=== PATIENT | female | born 1995 | race Caucasian/White ===

== ENCOUNTER 2024-04-23 18:31 | Emergency (ER) | payer OTHER, SELFPAY ==
[2024-04-23 19:02] VITALS: BP 138/94; PULSE 117; RESP 16; TEMP 37.1; O2SAT 100
[2024-04-23 19:41] LABS: EDINFLUASCREEN Negative (Negative); EDINFLUBSCREEN Negative (Negative); EDSTREPNEGPOS1 Positive (Negative)
[2024-04-23 19:42] LABS: EDCOVIDSCREEN Negative (Negative)
--- NOTE | 2024-04-23 20:16 | ED.URI ---
HPI - URI/Sore Throat General Chief Complaint: Upper Respiratory Infection Stated Complaint: Sore Throat Time Seen by Provider: 04/23/24 20:05 Source: patient, RN notes reviewed and old records reviewed Mode of arrival: ambulatory Limitations: no limitations History of Present Illness HPI Narrative: 29 year old female who presents to [facility] care with complaints of sore throat this morning with painful swallowing. Patient reports that she had red swollen tonsils, some body aches, feels weak and has chills with no known fevers. Patient reports past history of strep throat,has not taken any OTC medications. MD elicited complaint: sore throat Onset (ago): day(s) (this morning) Severity: moderate Able to tolerate fluids by mouth: Yes Treatments prior to arrival: none Related Data Home Medications Medication Instructions Recorded Confirmed atogepant 30 mg tablet (Qulipta) 30 mg PO DAILY 04/23/24 04/23/24 dextroamphetamine-amphetamine ER 10 mg PO DAILY 04/23/24 04/23/24 10 mg 24hr capsule,extend release (Adderall XR) sumatriptan succinate 100 mg 100 mg PO ONCE 04/23/24 04/23/24 tablet (Imitrex) testosterone enanthate 50 mg/0.5 50 mg subcut WEEKLY 04/23/24 04/23/24 mL subcutaneous auto-injector (Xyosted) Allergies Allergy/AdvReac Type Severity Reaction Status Date / Time No Known Allergies Allergy Verified 04/23/24 19:05 Review of Systems Review of Systems: CONSTITUTIONAL: Reports malaise, chills, sweats, no known fever. EYES: Denies visual changes, redness, or discharge. ENT: Reports rhinorrhea, congestion,no sinus pain, no otalgia and positive for sore throat. CARDIOVASCULAR: Denies chest pain, palpitations, or edema. RESPIRATORY: Reports no cough.? Denies dyspnea. GASTROINTESTINAL: Denies abdominal pain, nausea, vomiting, diarrhea SKIN: Denies rash or itching. MUSCULOSKELETAL: Denies myalgia. NEUROLOGIC: Denies headache. All systems reviewed & are unremarkable except as noted in HPI and below PMFSH Past Medical History Medical History (Updated 04/24/24 @ 11:54 by Faiza Tan NP) ADHD (attention deficit hyperactivity disorder) History of streptococcal sore throat Migraine Social History Social History (Updated 04/24/24 @ 11:57 by Faiza Tan NP) Smoking status: Never smoker Alcohol intake: current Alcohol use details: social Substance use type: does not use Living arrangements: with family Additional gender identity comments: is on testosterone therapy Comments At time of signature, agree with nursing past medical, surgical, social and family history. There is no relevant family history pertinent to the presenting complaint Exam Narrative: GENERAL: Well-appearing, well-nourished, and in no acute distress. HEAD: Normocephalic EYES: PERRLA, conjunctivae clear ENT: Nares clear, turbinates edematous and erythematous, clear discharge. Mucous membranes moist. TM pearly randolph with dull light reflex bilaterally; no tragal tenderness. Oropharynx erythematous without lesions. Tonsils red enlarged and without exudate, no drooling, no hoarseness, no trismus, uvula midline.painful swallowing NECK: Supple. lymphadenopathy CHEST: Clear to auscultation, breath sounds equal. No wheezing, rhonchi, rales, or stridor. No respiratory distress, speaks in full sentences. no cough noted,SAO2 100% on room air HEART: Regular rate and rhythm. No murmur heard. SKIN: Warm, dry, no rash. NEURO: Alert and oriented x3. PSYCH: Normal mood and affect Course Course Emergency Course: Patient is aware of diagnosis, understands and agrees to treatment plan.? Anticipatory guidance given.? Patient agrees to follow-up as directed and is aware of reasons to seek care at the emergency department. Portions of this record may have been created with voice recognition software Level of Care: Express Care Visit Vital Signs Vital signs: Vital Signs Temperatu
== END 2024-04-23 20:28 | disposition home or self-care (01) ==
PROVIDERS: Emergency Provider Registered Nurse
DX: J02.0 Streptococcal pharyngitis (principal); Z20.822 Contact with and (suspected) exposure to COVID-19; F90.9 Attention-deficit hyperactivity disorder, unspecified type
CPT/HCPCS: 87426; 87804; 87880; 99203; G0463

== ENCOUNTER 2024-04-26 10:27 | Emergency (ER) | payer OTHER, SELFPAY ==
[2024-04-26 10:35] VITALS: BP 136/80; PULSE 93; RESP 16; TEMP 36.5; O2SAT 100
[2024-04-26 12:32] VITALS: BP 143/98; PULSE 85; RESP 14; TEMP 36.7; O2SAT 98; O2SAT 99
[2024-04-26] MEDS: SODIUM CHLORIDE 0.9% IV 1,000 ML 999 ML IV CONT (13:13)
[2024-04-26] MEDS: LIDOCAINE HCL 2% VISC SOLN 15 ML UDC PO (13:13)
[2024-04-26 13:19] LABS: Basophils Percent Auto 0.3 % (0.2-1.2); Eosinophils Absolute Auto 0.1 K/mm3 (0-0.3); Eosinophils Percent Auto 0.8 % (0-4.4); Hematocrit 44.7 % (37.0-47.0); Hemoglobin 15.4 g/dL (12.0-15.0); Immature Granulocyte Absolute 0.03 K/mm3 (0.00-0.031); Immature Granulocyte Percent A 0.3 % (0-0.5); Lymphocytes Absolute Auto 1.11 K/mm3 (0.9-3.2); Lymphocytes Percent Auto 11.1 % (18.3-44.2); Mean Corpuscular HGB Conc 34.5 g/dl (32-36); Mean Corpuscular Hemoglobin 30.7 pg (26-34); Mean Platelet Volume 11.6 fl (7.4-10.4); Monocytes Absolute Auto 0.5 K/mm3 (0.1-0.6); Monocytes Percent Auto 4.6 % (2.6-8.5); Neutrophils Absolute Auto 8.3 K/mm3 (1.3-6.7); Neutrophils Percent Auto 82.9 % (45.5-73.1); Platelet Count Result 153 k/mm3 (150-375); Red Blood Count 5.02 M/mm3 (4.2-5.4); Red Cell Distribution Width 14.1 % (11.5-14.5)
--- NOTE | 2024-04-26 13:23 | ED.GENADULT ---
HPI - General Adult General Chief complaint: Upper Respiratory Infection Stated complaint: SORE THROAT, FEVER; + FOR STREP ON TUESDAY Time Seen by Provider: 04/26/24 12:33 History of Present Illness HPI narrative: Patient is a 29-year-old female presents transitioning male who presents ER with sore throat. Ongoing over the last 4 days. Seen in urgent care on 04/23/2024 and diagnosed with strep throat. Has been on Augmentin without improvement. Nose some scleral icterus today. Concerned may be having some liver issues. Also has difficulty eating and swallowing due to pain and redness of the throat. Discomfort start on right-side is moved over to left side as well. Related Data Home Medications Medication Instructions Recorded Confirmed atogepant 30 mg tablet (Qulipta) 30 mg PO DAILY 04/23/24 04/23/24 dextroamphetamine-amphetamine ER 10 mg PO DAILY 04/23/24 04/23/24 10 mg 24hr capsule,extend release (Adderall XR) sumatriptan succinate 100 mg 100 mg PO ONCE 04/23/24 04/23/24 tablet (Imitrex) testosterone enanthate 50 mg/0.5 50 mg subcut WEEKLY 04/23/24 04/23/24 mL subcutaneous auto-injector (Xyosted) Allergies Allergy/AdvReac Type Severity Reaction Status Date / Time No Known Allergies Allergy Verified 04/23/24 19:05 Review of Systems Review of Systems: All systems reviewed & are unremarkable except as noted in HPI and below Constitutional: Constitutional: Denies chills, Reports fatigue and Reports fever(s) ENT: Denies nasal congestion and Reports sore throat Cardiovascular: Cardiovascular: Reports no additional cardiovascular complaints Respiratory: Respiratory: Reports no additional respiratory complaints Gastrointestinal: Gastrointestinal: Reports no additional gastrointestinal complaints [facility] Past Medical History Medical History (Updated 04/26/24 @ 15:05 by Lee Sumner MD) ADHD (attention deficit hyperactivity disorder) History of streptococcal sore throat Migraine Social History Social History (Updated 04/24/24 @ 11:57 by Faiza Tan NP) Smoking status: Never smoker Alcohol intake: current Alcohol use details: social Substance use type: does not use Living arrangements: with family Additional gender identity comments: is on testosterone therapy Exam Narrative: GENERAL: Well-appearing, well-nourished, and in no acute distress. HEAD: Normocephalic, atraumatic. ENT: Mucous membranes moist. Pharyngeal erythema with mild tonsillar hypertrophy. Uvula midline. No uvular edema. Eyes with mild scleral icterus. NECK: Mild anterior cervical chain lymphadenopathy bilaterally. CHEST: Clear to auscultation. No respiratory distress. HEART: Regular rate and rhythm. Normal peripheral pulses. ABDOMEN: Soft, nontender, nondistended. EXTREMITIES: Normal range of motion. No edema. SKIN: Warm, dry, no rash. NEURO: Alert and oriented x3. PSYCH: Normal mood and affect. Course Course Emergency Course: Patient resting comfortably. Pain improved with viscous lidocaine. Will provide the same medication for home. Will also discontinue Augmentin and start azithromycin. Suspect patient has gold there is disease causing the scleral icterus and elevated bilirubin. She has a family member with the same condition. Mild transaminitis, she will discuss with her PCP whether she should hold her testosterone therapy. Vital Signs Vital signs: Vital Signs Temperature 97.7 F 04/26/24 10:35 Pulse Rate 93 04/26/24 10:35 Respiratory Rate 16 04/26/24 10:35 Blood Pressure 136/80 04/26/24 10:35 Pulse Oximetry 100 04/26/24 10:35 Temperature 98.1 F 04/26/24 12:32 Pulse Rate 91 04/26/24 14:28 Respiratory Rate 14 04/26/24 14:28 Blood Pressure 144/81 H 04/26/24 14:28 Pulse Oximetry 100 04/26/24 14:28 Oxygen Delivery Room Air 04/26/24 12:32 Medical Decision Making Vital Signs Vital Signs: Vital Signs Temperature 97.7 F
[2024-04-26 13:30] LABS: Alanine Aminotransferase 122 U/L (6-35); Albumin Level 4.5 g/dL (3.5-5.1); Alkaline Phosphatase 106 U/L (38-126); Anion Gap 8 mmol/L (4-12); Aspartate Amino Transferase 81 U/L (14-36); Bilirubin,Total 3.3 mg/dL (0.2-1.3); Blood Urea Nitrogen 13 mg/dL (7-17); Calcium 9.6 mg/dL (8.4-10.2); Carbon Dioxide 27 mmol/L (22-30); Chloride 103 mmol/L (98-107); Estimated CRCL calculation 88 ml/min; Estimated Glomerular Filt Rate > 60; Glucose 87 mg/dL (65-110); Potassium 4.4 mmol/L (3.4-5.0); Sodium 138 mmol/L (137-145)
[2024-04-26 13:43] LABS: Monoscreen Negative (Negative); Negative Monotest Control Negative (Negative); Positive Monotest Control Positive (Positive)
[2024-04-26 14:28] VITALS: BP 144/81; PULSE 91; RESP 14; O2SAT 100
== END 2024-04-26 15:34 | disposition home or self-care (01) ==
PROVIDERS: Emergency Provider Emergency Medicine
DX: J02.0 Streptococcal pharyngitis (principal); R74.01 Elevation of levels of liver transaminase levels; Z79.890 Hormone replacement therapy; F90.9 Attention-deficit hyperactivity disorder, unspecified type
CPT/HCPCS: 36415; 80053; 85025; 86308; 96360; 99283; J7030

== ENCOUNTER 2024-07-18 16:03 | Emergency (ER) | payer OTHER, SELFPAY ==
[2024-07-18 16:13] VITALS: BP 145/86; PULSE 88; RESP 16; TEMP 36.4; O2SAT 98
--- NOTE | 2024-07-18 16:53 | ED.EAR ---
HPI - Ear Problem General Chief complaint: Ear Stated complaint: Ear Pain Time Seen by Provider: 07/18/24 16:44 Source: patient and RN notes reviewed Mode of arrival: ambulatory Limitations: no limitations History of Present Illness HPI Narrative: Patient presents today complaining in approximately 2 week history of right ear clogging. Patient was seen last week at a different Urgent Care and was told there was fluid behind the eardrum. Patient was given an IM injection of dexamethasone and prescription for p.o. prednisone, which was completed. States now the ear pops or acid did not prior, but patient cannot still hear out of the right ear. Flonase was started and patient took 1 or 2 doses of Sudafed without relief. Denies pain. Related Data Home Medications ?Medication ?Instructions ?Recorded ?Confirmed ?Last Taken ?Type atogepant 30 mg tablet (Qulipta) 30 mg PO DAILY 04/23/24 04/23/24 Unknown History dextroamphetamine-amphetamine ER 10 mg PO DAILY 04/23/24 04/23/24 Unknown History 10 mg 24hr capsule,extend release (Adderall XR) sumatriptan succinate 100 mg 100 mg PO ONCE 04/23/24 04/23/24 Unknown History tablet (Imitrex) testosterone enanthate 50 mg/0.5 50 mg subcut WEEKLY 04/23/24 04/23/24 Unknown History mL subcutaneous auto-injector (Xyosted) Allergies Allergy/AdvReac Type Severity Reaction Status Date / Time No Known Allergies Allergy Verified 07/18/24 16:18 Review of Systems Review of Systems: CONSTITUTIONAL: Denies body aches, fever, chills, or sweats. EYES: Denies visual changes, redness, or discharge. ENT: Denies rhinorrhea, congestion, sore throat, or otalgia.+ muffled hearing CARDIOVASCULAR: Denies chest pain, palpitations, or edema. RESPIRATORY: Denies cough or dyspnea. GASTROINTESTINAL: Denies abdominal pain, nausea, vomiting, or diarrhea. GENITOURINARY: Denies dysuria or hematuria. SKIN: Denies rash, itching, or wounds. MUSCULOSKELETAL: Denies back pain, joint pain, or myalgia. NEUROLOGIC: Denies headache, numbness, tingling, or weakness. PSYCH: Denies depression or anxiety. [facility] Past Medical History Medical History ADHD (attention deficit hyperactivity disorder) Migraine History of streptococcal sore throat Social History Social History Smoking status: Never smoker Alcohol intake: current Alcohol use details: social Substance use type: does not use Living arrangements: with family Additional gender identity comments: is on testosterone therapy Comments At time of signature, I have reviewed and agree with nursing past medical, surgical, social and family history unless otherwise noted. Please see nursing chart for further information. There is no relevant family history pertinent to the presenting complaint Exam Narrative: GENERAL: Well-appearing, well-nourished, and in no acute distress. HEAD: Normocephalic, atraumatic. EYES: EOMI. No redness or drainage. Conjunctivae normal. ENT: Mucous membranes pink and moist. Nares clear. No rhinorrhea. TMs normal bilaterally. Minor right middle ear effusion without evidence of bacterial infection. NECK: Normal AROM. CHEST: No respiratory distress. EXTREMITIES: Normal range of motion. No edema. SKIN: Warm, dry, no rash. Capillary refill normal. Normal skin turgor. NEURO: No focal deficits. Alert and oriented x3. Gait steady. PSYCH: Normal affect. No signs of depression or anxiety. Course Course Level of Care: Express Care Visit Vital Signs Vital signs: Vital Signs Temperature 97.6 F 07/18/24 16:13 Pulse Rate 88 07/18/24 16:13 Respiratory Rate 16 07/18/24 16:13 Blood Pressure 145/86 H 07/18/24 16:13 Pulse Oximetry 98 07/18/24 16:13 Temperature 97.6 F 07/18/24 16:13 Pulse Rate 88 07/18/24 16:13 Respiratory Rate 16 07/18/24 16:13 Blood Pressure 145/86 H 07/18/24 16:13 Pulse Oximetry 98 07/18/24 16:13 Reviewed Medical Decision Making MDM Narrative Medical decision making narrative: Patient has a minor right serous effusion. Recommend decongestant and continue Flonase. Do not recommend additional course of prednisone at this time. Recommend ENT or PCP follow-up if symptoms persist. Anticipatory guidance given. Differential Diagnosis Differential Diagnosis: Otitis media, otitis externa, ruptured TM, serous otitis, cerumen impaction Vital Signs Vital Signs: Vital Signs Temperature 97.6 F 07/18/24 16:13 Pulse Rate 88 07/18/24 16:13 Respiratory Rate 16 07/18/24 16:13 Blood Pressure 145/86 H 07/18/24 16:13 Pulse Oximetry 98 07/18/24 16:13 Temperature 97.6 F 07/18/24 16:13 Pulse Rate 88 07/18/24 16:13 Respiratory Rate 16 07/18/24 16:13 Blood Pressure 145/86 H 07/18/24 16:13 Pulse Oximetry 98 07/18/24 16:13 Critical Care Time Critical Care Time Critical Care Time: No Discharge Plan Discharge Clinical Impression: Acute serous otitis media of right ear Patient Disposition: Home, Self-Care Condition: Stable Instructions: Fluid In The Ear (Serous Otitis Media) (ED) Additional Instructions: You have some fluid behind the right ear drum. There is no evidence of infection at this time. Continue Flonase and consider trying a decongestant such as Sudafed. Follow-up with your PCP or ENT physician if symptoms do not improve. Your blood pressure was elevated above 120/80 today at Urgent Care. This puts you above the threshold for follow up. Please schedule a followup visit with your personal physician as soon as possible, for further evaluation and treatment. Even blood pressure exceeding 120/80 may indicate pre-hypertension. Patient Language: [place] Citizen Prescriptions: No Action dextroamphetamine-amphetamine [Adderall XR] 10 mg Capsule,Extended Release 24hr 10 mg PO DAILY Qulipta 30 mg Tablet 30 mg PO DAILY sumatriptan succinate [Imitrex] 100 mg Tablet 100 mg PO ONCE Xyosted 50 mg/0.5 mL Auto-Injector 50 mg SUBCUT WEEKLY amoxicillin-pot clavulanate 875-125 mg tablet 1 tablet PO Q12H Qty: 20 0RF Rx Instructions: take all prescription azithromycin 500 mg tablet 500 mg PO DAILY 5 Days Qty: 5 0RF lidocaine HCl [Lidocaine Viscous] 2 % solution 1 applic mucous membrane TID PRN (Reason: pain) Qty: 100 0RF Follow-up/Referrals: PHYSICIAN,GROUP LEADER [employer] [facility] [Primary Care Provider] - Manohar Turk MD [Non-Staff] - Time of Disposition: 16:57
== END 2024-07-18 17:14 | disposition home or self-care (01) ==
PROVIDERS: Emergency Provider Nurse Practitioner
DX: H65.01 Acute serous otitis media, right ear (principal); F90.9 Attention-deficit hyperactivity disorder, unspecified type
CPT/HCPCS: 99213; G0463